=== PATIENT | male | born 1995 | race American Indian/Alaskan Native ===

== ENCOUNTER 2017-12-08 23:36 | Emergency (ER) | payer BC, SELFPAY ==
[2017-12-08 23:37] VITALS: BP 121/78; PULSE 80; RESP 20; TEMP 36.7; O2SAT 96; BMI 25.6
--- NOTE | 2017-12-08 23:43 | RAD_ITS ---
STUDY: X-RAY - LEFT SHOULDER REASON FOR EXAM: Male, 22 years old. Patient fell TECHNIQUE: 4 view(s) of the shoulder. COMPARISON: None. FINDINGS: Normal glenohumeral articulation. There is a complete dislocation at the acromioclavicular joint. Normal humeral head and visualized proximal humerus. The soft tissue structures are unremarkable. Normal visualized pulmonary apex. RAD/Shoulder min 2 Views IMPRESSION: Complete dislocation of the left acromioclavicular joint. No fracture Electronically Signed: Tam Noland MD at 0:07 EDT Tel , Service support ,
--- NOTE | 2017-12-08 23:45 | ED.VISSUMM ---
- ER Visit Summary Date of Service: 12/08/17 Chief Complaint: Left shoulder injury History of Present Illness: The patient is a 22 M presents to the emergency department with injury to his left shoulder. Patient states he was running and tripped. He ended up rolling on the ground, and strike his left shoulder. He did not his head. He denies loss of consciousness. He states that it looked like it was deformed and he thinks he may have dislocated his arm. He is otherwise healthy and takes no daily medications. He still to move the arm, but does complain of some pain. Physical Examination: Examination is relatively unremarkable. The patient does appear to have an AC joint separation. He is tender to palpation of this area. He has no pain at the proximal humerus. His axillary nerve is preserved. His lungs are clear. Pulses are normal and bilateral wrists. Test Results: [] Emergency Department Course and Treatment: Plain films were obtained of the shoulder. The patient does appear to have an AC joint separation. There is no evidence of fracture. His axillary nerve is preserved. There is no skin tenting. His pulses are normal. She was placed in a sling for comfort. He will be continued on anti-inflammatories. Is given outpatient orthopedic follow-up. He was counseled on concerning symptoms and reasons to return. He will be discharged home. Treatment Plan: [] Disposition: Discharge Impression: 1. Left AC joint separation This note was generated with [employer] dictation software. It may contain incorrect words, spelling, and punctuation that were not noted in review of the chart prior to signing ED Disposition - Plan for ED Patient: Chief Complaint: Upper Extremity Injury Instructions: ED Sprain AC Joint Prescriptions: Naproxen [Naprosyn] 500 mg PO BID PRN #20 tab Referrals: Mateo Parks MD [STAFF PHYSICIAN] -
[2017-12-09 00:13] VITALS: RESP 18; O2SAT 98
== END 2017-12-09 00:24 | disposition home or self-care (01) ==
LOC: ED 12-09 00:23
PROVIDERS: Emergency Provider Emergency Medicine
DX: S43.102A Unspecified dislocation of left acromioclavicular joint, initial encounter (principal); W01.0XXA Fall on same level from slipping, tripping and stumbling without subsequent striking against object, initial encounter; Y93.02 Activity, running
CPT/HCPCS: 73030; 99283